=== PATIENT | female | born 1995 | race Caucasian/White ===

== ENCOUNTER 2021-08-29 12:15 | Emergency (ER) | payer OTHER, SELFPAY ==
--- NOTE | ~2021-08-29 | XR_ITS ---
EXAMINATION: XR ELBOW, RIGHT CLINICAL INFORMATION: Rule out foreign body and laceration. COMPARISON: None TECHNIQUE: AP, lateral, and oblique views of the right elbow. FINDINGS: There is no radiopaque foreign body seen. The joint spaces are maintained normal. No fracture or dislocation. No joint effusion. XR/XR elbow RT min 3V IMPRESSION: No radiopaque foreign body seen. The right elbow is unremarkable.
[2021-08-29 12:23] VITALS: BP 118/85; PULSE 63; RESP 18; TEMP 36.6; O2SAT 100; BMI 20.1
--- NOTE | 2021-08-29 13:59 | ED.WOUNDLAC ---
HPI - Wound/Laceration General Chief Complaint: Wound/Laceration Stated Complaint: lac on R elbow Time Seen by Provider: 08/29/21 13:09 Source: patient Mode of arrival: ambulatory History of Present Illness HPI narrative: 25-year-old female with no significant past medical history presenting to the ED complaining of laceration to right elbow s/p window falling on her 2 nights ago & glass breaking and cutting her. Denies injury to other area. Unsure if tetanus is up-to-date. Denies numbness, tingling, weakness. Patient also unsure if retained foreign body Onset (ago): day(s) Related Data Allergies Allergy/AdvReac Type Severity Reaction Status Date / Time No Known Allergies Allergy Verified 08/29/21 12:23 [No Known Allergies*] Review of Systems Review of Systems: Constitutional: No Fever, No Chills ENT/Mouth: No Ear Pain, No sore throat, No Rhinorrhea, No Swallowing Difficulty Cardiovascular: No Chest Pain, No SOB Respiratory: No Cough, No Sputum, No Wheezing Gastrointestinal: No Nausea, No Vomiting, No Diarrhea, No Constipation, No Abdominal pain Musculoskeletal: No joint pain, No Myalgias, No Joint Swelling Skin: + Skin Lesions, No rash Neuro: No Weakness, No Numbness, No Paresthesias Yes all other systems are reviewed and are negative PMFSH Past Medical History Attestation statement: The following information was validated with the patient. Social History Social History Advance Directives: No Advance Directives Information Provided: No Physical Exam Vital Signs: Vital Signs: Last Vital Signs Temp 97.9 F 08/29/21 12:23 Pulse 63 08/29/21 12:23 Resp 18 08/29/21 12:23 BP 118/85 08/29/21 12:23 Pulse Ox 100 08/29/21 12:23 O2 Del Method 08/29/21 12:23 BMI result Body Mass Index 20.1 Const: General: cooperative, healthy appearing and no acute distress Orientation/consciousness: patient oriented x3 Limitations: no limitations HEENT: Head: Yes normal to inspection and Yes atraumatic Ears: hearing grossly normal bilaterally General nose exam: Normal external nose present Face and sinus: Yes normal facial exam Eyes: General: appearance normal, both eyes and all related structures EOM: EOMs intact bilaterally Neck: Neck: Yes normal visual inspection and Yes no meningeal signs Resp: Effort & Inspection: normal respiratory effort and no respiratory distress Cardio: Rate: regular rate Heart sounds: S1 normal heart sound present and S2 normal heart sound present Peripheral pulses: radial pulses present Skin: Other: + 2 cm laceration noted to right elbow, clean, bleeding controlled. No surrounding erythema, no fluctuance or induration. No appreciable foreign body Rashes: no rashes Neuro: General: patient oriented x3, tone normal and no meningeal signs Gait exam (Neuro): Normal gait present Extrem: General: Yes normal to inspection Course Course Course Narrative: XR elbow RT min 3V IMPRESSION: No radiopaque foreign body seen. The right elbow is unremarkable. MDM - Wound/Laceration MDM Narrative Medical decision making narrative: 25-year-old female with no significant past medical history presenting to the ED complaining of laceration to right elbow s/p window falling on her 2 nights ago & glass breaking and cutting her. On exam vital signs stable, physical exam as above, laceration noted to right elbow which would have required sutures if the patient presented after injury, discussed with patient will Steri-Strips due to risk of infection. Also discussed updating tetanus however patient would like to wait until she verifies with her PCP Will obtain x-ray to rule out foreign body Differential Diagnosis Differential diagnosis: Likely laceration Medical Records Attestation: I reviewed the patient's medical records. Lab Data Attestation: I reviewed the patient's lab results. Procedures Laceration Laceration 1: Site: upper extremity Side (If applicable): right Size (cm): 2 Description: linear Depth: simple, single layer Skin layer closed with: other (steri strips) Discharge Plan Discharge Clinical Impression: Laceration Patient Disposition: Home, Self-Care Instructions: Laceration (ED), Skin Adhesive Care (ED) Additional Instructions: Keep Steri-Strips on as long as possible, they will fall off on their own. If area begins look infected, is red, there is drainage please return to the emergency department Follow-up with your doctor you can apply bacitracin or Neosporin at home Please check on her tetanus, or not up-to-date you need to be boosted Referrals: Physician,Unknown J [Primary Care Provider] - Stand Alone Forms: Work/School Release
== END 2021-08-29 14:11 | disposition home or self-care (01) ==
PROVIDERS: Emergency Provider Emergency Medicine Emergency Medical Services
DX: S51.011A Laceration without foreign body of right elbow, initial encounter (principal); W25.XXXA Contact with sharp glass, initial encounter; Y93.9 Activity, unspecified; Y92.9 Unspecified place or not applicable; Y99.9 Unspecified external cause status
CPT/HCPCS: 12001; 73080; 99283